=== PATIENT | female | born 2000 | race Two or more races ===

== ENCOUNTER 2023-11-10 12:23 | Emergency (ER) | payer OTHER, SELFPAY ==
[2023-11-10] MEDS ORDERED: Ketorolac Tromethamine 30 MG (1 mL) VIAL ONE (13:28)
[2023-11-10] MEDS ORDERED: Prochlorperazine 10 MG/2 ML VIAL ONE (13:28)
== END 2023-11-10 15:08 | disposition home or self-care (01) ==
LOC: CSHERS 12:23
DX: R51.9 Headache, unspecified (principal)
CPT/HCPCS: 96374; 96375; J0780; J1885

== ENCOUNTER 2025-04-12 14:15 | Day surgery (SDC) | payer OTHER ==
[2025-04-12] MEDS ORDERED: hydrALAZINE 20 MG/ML VIAL SLOW IVP PRN (14:52)
[2025-04-12 14:56] VITALS: BMI 37.5
[2025-04-12 15:19] LABS: Protein, Urine Random Quant Less than 10 mg/dL (1-14)
[2025-04-12 15:29] LABS: #Basophils Less than 0.03 10x3/uL (0.0-0.2); #Eosinophils 0.06 10x3/uL (0.0-0.5); #Monocytes 0.82 10x3/uL (0.0-1.1); #Neutrophils 9.22 10x3/uL (1.5-8.4); %Basophils 0.2 % (0.0-2.0); %Eosinophils 0.5 % (0.0-6.0); %Lymphocytes 9.8 % (18.0-47.0); %Monocytes 7.2 % (0.0-10.0); %Neutrophils 81.5 % (40.0-75.0); Hematocrit 34.9 % (34.9-44.5); Hemoglobin 11.8 g/dL (12.0-15.5); Mean Corpuscular Hemoglobin 29.1 pg (27.0-33.0); Mean Corpuscular Volume 86.0 fL (81.6-98.3); Platelet Count 237 10x3/uL (150-450); Red Blood Cell (RBC) Count 4.06 10x6/uL (3.90-5.03); White Blood Cell (WBC) Count 11.32 10x3/uL (3.5-10.5)
[2025-04-12 15:45] LABS: ALT (SGPT) 24 U/L (Less than 34); AST (SGOT) 25 U/L (11-34); Albumin 3.1 g/dL (3.1-4.5); Alkaline Phosphatase 67 U/L (40-110); Anion Gap 9 mmol/L (10-20); BUN (Urea Nitrogen) 7 mg/dL (7.0-18.7); Bilirubin, Total 0.2 mg/dL (0.3-1.2); Calc. Creatinine Clearance 227 mL/min (70-130); Calcium 8.9 mg/dL (7.8-10.44); Carbon Dioxide 22 mmol/L (22-29); Chloride 107 mmol/L (98-107); Globulin 3.3 g/dL (2.4-3.5); Glucose 85 mg/dL (70-105); Potassium 3.6 mmol/L (3.5-5.1); Sodium 134 mmol/L (136-145)
== END 2025-04-12 16:55 | disposition home or self-care (01) ==
LOC: CSHLD/OP 14:15
PROVIDERS: ATTEND Family Medicine
DX: O99.891 Other specified diseases and conditions complicating pregnancy (principal); R03.0 Elevated blood-pressure reading, without diagnosis of hypertension; O99.213 Obesity complicating pregnancy, third trimester; E66.813 Obesity, class 3; Z3A.29 29 weeks gestation of pregnancy; Z67.10 Type A blood, Rh positive; Z79.899 Other long term (current) drug therapy
CPT/HCPCS: 36415; 80053; 82570; 84156; 85025; 99285